=== PATIENT | male | born 1955 | race Caucasian/White ===

== ENCOUNTER → 2019-04-14 | Outpatient (CLI) | payer SELFPAY ==
[2019-04-14 17:54] LABS: Appearance,BF Hazy; Color,BF Yellow
[2019-04-14 17:55] LABS: Nucleated Cells, Body Fluid 1000 /uL; RBC, Body Fluid 1800 /uL
[2019-04-14 17:57] LABS: Mononuclear WBC,Body Fluid 22 %; Polynuclear WBC,Body Fluid 78 %; Total Cells Counted,Body Fluid 100
== END | disposition home or self-care (01) ==
LOC: LABWHC1 15:22
PROVIDERS: ATTEND Orthopaedic Surgery
DX: M25.562 Pain in left knee (principal)
CPT/HCPCS: 87070; 87075; 87205; 89050; 89060

== ENCOUNTER → 2022-07-08 | Outpatient (CLI) | payer MEDICARE ==
--- NOTE | 2022-07-08 12:20 | P.SLEEP ---
History of Present Illness DATE: 07/08/2022 CONSULTATION/NEW PATIENT EVALUATION HISTORY OF PRESENT ILLNESS/SLEEP-WAKE EVALUATION: 67year old lady gentleman had been evaluated in the sleep center for possible obstructive sleep apnea hypopnea syndrome. Patient has history of obstructive sleep apnea diagnosed about 32 years ago. Results of previous sleep studies are not available. Patient is on treatment with CPAP for many years. At the present time he is using old CPAP unit which she received from his relative. SLEEP SCHEDULE: Usually sleep schedule on weekdays from 12 AM until 8 AM, during days off from 1 AM until 9 AM. FALLING ASLEEP: No problems with falling asleep, no TV in bedroom. DURING SLEEP: Patient snores and has episodes of stop breathing during the sleep if he is not using CPAP. Positive history of awakenings with dry mouth, heartburn and gasping for air. No history of hypnogogical hallucinations, sleep paralysis, or cataplexy. DURING THE DAY/WAKE STATE: In the morning patient wake up tired, falling asleep during the day, has problems with memory. [place] sleepiness scale is significantly increased to 16. Patient takes nap at 3 PM. PAST MEDICAL HISTORY: Diabetes mellitus, hyperthyroidism. PAST SURGICAL HISTORY: Surgical treatment of nasal septum deviation. MEDICATIONS: Metformin 1000 mg twice a day, pioglitazone 30 mg once a day, lisinopril 5 mg once a day, methimazole 5 mg once a day. SOCIAL HISTORY: Negative for smoking, alcohol consumption occasional. FAMILY HISTORY: Negative. REVIEW OF SYSTEMS: Snoring, excessive daytime sleepiness. No fevers. No double vision. No recent chest pain. No shortness of breath. No abdominal pain. No bleeding episodes. No blood in urine. No seizure episodes. PHYSICAL EXAMINATION: GENERAL: A pleasant patient without any distress. VITAL SIGNS: BP 120/80 , HR 82 , RR 16 , weight 210 pounds, height 6 foot 2 inches, body mass index 26.9 . HEENT: PERRLA, EOMI. Evaluation of oropharynx showed tongue protrudes midline, low position of soft palate Mallampati 3-4. NECK: Supple. No JVD. Thyroid is not palpable. 15-3/4 inches in circumference. LUNGS: Clear to percussion and to auscultation. Good air exchange. No wheezing or rhonchi. HEART: S1, S2 regular. No murmurs, gallops or rubs. ABDOMEN: Soft and nontender. Bowel sounds are present. No organomegaly appreciated. EXTREMITIES: No clubbing or cyanosis. SHIRT OPERATOR: Awake, alert, and oriented x3. Cranial nerves 2 to 7 intact. There is no fasciculation or atrophy noted. No focal deficits observed. ASSESSMENT: 1. Snoring, low position of soft palate Mallampati 34, significant excessive daytime sleepiness [place] Sleepiness Scale is 16. Obstructive sleep apnea hypopnea syndrome diagnosed in another institution about 32 years ago. Results of previous sleep studies are not available. Obstructive sleep apnea hypopnea syndrome. 2. Hyperthyroidism. 3 diabetes mellitus. 4. Status post surgical treatment for nasal septum deviation. 5 history of sinus problems. PLAN: 1. Polysomnography for evaluation of patient's breathing during sleep. 2. CPAP/BiPAP titration if sleep study confirms obstructive sleep apnea- hypopnea syndrome. 3. Preferable position during sleep on the side. 4. No driving if patient feels any sleepiness. Patient is aware of civil and criminal liability for unsafe driving. 5. Sleep hygiene with regular sleep time for at least 7.5-8 hours. 6. Watching weight. Thank you very much for referring this patient for consultation. Sincerely, Elvin Díaz MD, PhD, FAASM. Diplomat of [place] [employer], Sleep Medicine Board by [employer] Premium Note Interest Calculator Clerk of [facility] [place] [facility] - Sleep Note Sleep Note: Temperature: Pulse Rate: Respiratory Rate: Blood Pressure: SpO2: Height: Weight: BMI: Neck Circumference:
== END ==
LOC: SLEEP 11:21
PROVIDERS: ATTEND Internal Medicine
DX: R06.83 Snoring (principal); E03.9 Hypothyroidism, unspecified; E11.9 Type 2 diabetes mellitus without complications; Z79.84 Long term (current) use of oral hypoglycemic drugs; Z85.22 Personal history of malignant neoplasm of nasal cavities, middle ear, and accessory sinuses
CPT/HCPCS: 99202

== ENCOUNTER → 2022-12-16 | Outpatient (CLI) | payer MEDICARE ==
--- NOTE | 2022-12-16 17:03 | P.PN ---
Subjective DATE: 12/16/2022 FOLLOW UP VISIT. Patient returned to sleep center for follow-up visit to discuss results of sleep study and following plan. I discussed results of sleep studies with patient in details. Patient had CPAP titration night with the following multiple sleep latency test for objective for ablation his symptoms of significant excessive daytime sleepiness while he is on treatment with CPAP. During titration patient respiration was on full control with normal oxygenation during the sleep and patient had normal sleep efficiency of 90%. Multiple sleep latency tests have been done on the following day and consisted from 5 naps. Patient fell asleep on all naps. Mean sleep latency was short only 4.8 minutes. No sleep onset REM periods have been documented. Patient continued to feel sleepiness during the day. [place] sleepiness scale is significantly increased to 15 today.. MEDICATIONS:1. Metformin 1000 mg twice a day 2. Methimasole 5 mg once a day 3. Lisinopril 5 mg once a day 4. Pioglitazone 30 mg once a day During physical exam: GENERAL: A pleasant patient without any distress. VITAL SIGNS: BP 155/86, HR 64, RR 16 , weight 210, temperature 97.3, oxygen saturation at room air 98%. HEENT: PERRLA, EOMI. NECK: Supple. No JVD. LUNGS: Clear to percussion and to auscultation. Good air exchange. No wheezing or rhonchi. HEART: S1, S2 regular. ABDOMEN: Soft and nontender. EXTREMITIES: No clubbing or cyanosis. COUNTER SALES PERSON: Awake, alert, and oriented x3. No focal deficit. Impressions: 1. Obstructive sleep apnea hypopnea syndrome on control with CPAP. 2. Multiple sleep latency test confirmed pathological sleepiness with mean sleep latency 4.8 minutes. 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 3. Diabetes mellitus. 4. Hyperthyroidism. 5. History of sinuses problems. 6. Status post nasal surgery for nasal septum deviation. Plan: 1. Patient will be started on treatment with modafinil 200 mg in the morning 2. Sleep hygiene with regular time in bed for at least 8 hours. 3. Daytime naps permitted 4. Precautions related to driving. No driving if feel any sleepiness. Patient is aware about civil and criminal liability for unsafe driving, promised to follow recommendations. 5. Patient will continue to use CPAP equipment every night for the whole night 6. Follow-up visit in 3 months. Thank you very much for allowing me to participate in the management of your patient. Elvin Díaz MD, PhD, FAASM. Diplomat of [place] [employer], Sleep Medicine Board by [place] [employer] Telephone Service Adviser of [facility] [place]
== END ==
LOC: SLEEP 16:26
PROVIDERS: ATTEND Internal Medicine
DX: G47.33 Obstructive sleep apnea (adult) (pediatric) (principal); E05.90 Thyrotoxicosis, unspecified without thyrotoxic crisis or storm; J32.9 Chronic sinusitis, unspecified; E11.9 Type 2 diabetes mellitus without complications; Z79.84 Long term (current) use of oral hypoglycemic drugs; Z98.890 Other specified postprocedural states
CPT/HCPCS: 99212

== ENCOUNTER → 2023-03-03 | Outpatient (CLI) | payer MEDICARE ==
--- NOTE | 2023-03-03 13:35 | P.PN ---
Subjective DATE: 03/03/2023 FOLLOW UP VISIT. Patient with obstructive sleep apnea hypopnea syndrome return to sleep center for follow-up visit. Information from previous visit have been reviewed. Patient is using PAP equipment every night for the whole night, getting PAP supplies in time. The patient does not have significant problems with the mask, PAP unit and humidification. [place] sleepiness scale is 12, which is slightly above normal range. Multiple sleep latency test in the past showed short sleep latency. Patient is able to control his alertness without additional medications. I checked information from PAP unit. PAP unit pressure 5-13, average 7.2 cm H2O. Usage is 100 % for more then 4 hours, average 7 hours per night. Leak is 13.2 l/m, which is in acceptable range. Apnea Hypopnea Index is 2.4, which is normal. MEDICATIONS:1. Metformin 1000 mg twice a day 2. Pioglitazone 30 mg once a day 3. Methimazole 5 mg once a day 4. Lisinopril 5 mg once a day 5. Jardiance 25 mg once a day During physical exam: GENERAL: A pleasant patient without any distress. VITAL SIGNS: BP 114/71, HR 87, RR 16 , weight 205.4, temperature 98.2, oxygen saturation at room air 97 % . HEENT: PERRLA, EOMI.low position of soft palate, Mallapati 3 . NECK: Supple. No JVD. LUNGS: Clear to percussion and to auscultation. Good air exchange. No wheezing or rhonchi. HEART: S1, S2 regular. ABDOMEN: Soft and nontender.[] EXTREMITIES: No clubbing or cyanosis. COIL CONNECTOR REPAIRER: Awake, alert, and oriented x3. No focal deficit. Impressions: 1. Obstructive sleep apnea-hypopnea syndrome. Patient demonstrated great c ompliance with treatment, benefiting from treatment. 2. Excessive daytime sleepiness, previously confirmed by multiple sleep latency test. Mean sleep latency 4.8 minutes. Patient is able to control his alertness of the present time without additional medications. 3. Hyperthyroidism. 4. Diabetes mellitus. 5. History of sinuses problems. 6. Status post nasal surgery for nasal septum deviation. Plan: 1. Continue using PAP equipment every night for the whole night. 2. I discussed with patient the possibility to use medication for excessive daytime sleepiness, patient prefers not to start medication. 3. PAP unit should stay lower then position of the head. 4. Advised patient to remove all remaining water from humidifier canister daily and make it dry after each usage. Refill canister with fresh distilled water before each usage. 5. Sleep hygiene with regular time in bed for at least 8 hours. 6. Precautions related to driving. No driving if feel any sleepiness. 7. I will maintain prescription for PAP supplies including mask, tube, filters. 8. Watching weight. 9. Follow up visit in 6 months or earlier if patient has any problems. Thank you very much for allowing me to participate in the management of your patient. Elvin Díaz MD, PhD, FAASM. Diplomat of [place] [employer], Sleep Medicine Board by [place] [employer] Laser Specialist of [facility] [place]
== END ==
LOC: 3 N SLEEP 13:00
PROVIDERS: ATTEND Internal Medicine
DX: G47.33 Obstructive sleep apnea (adult) (pediatric) (principal); E03.9 Hypothyroidism, unspecified; E11.9 Type 2 diabetes mellitus without complications; J34.2 Deviated nasal septum; Z99.89 Dependence on other enabling machines and devices; Z79.84 Long term (current) use of oral hypoglycemic drugs
CPT/HCPCS: 99212

== ENCOUNTER → 2023-09-01 | Outpatient (CLI) | payer MEDICARE ==
--- NOTE | 2023-09-01 13:48 | P.PN ---
Subjective DATE: 09/01/2023 FOLLOW UP VISIT. Patient with obstructive sleep apnea hypopnea syndrome return to sleep center for follow-up visit. Information from previous visit have been reviewed. Patient is using PAP equipment every night for the whole night, getting PAP supplies in time. The patient does not have significant problems with the mask, PAP unit and humidification. [place] sleepiness scale is increased to 13. I checked information from PAP unit. PAP unit pressure 5-13, average 7.1 cm H2O. Usage is 100 % for more then 4 hours, average 7 hours per night. Leak is 15.5 l/m, which is in acceptable range. Apnea Hypopnea Index is 2.0, which is normal. MEDICATIONS:1. Metformin 1000 mg twice a day 2. Pioglitazone 30 mg once a day 3. Lisinopril 5 mg once a day 4. Jardiance 25 mg once a day 5. Methimasole 5 mg once a day During physical exam: GENERAL: A pleasant patient without any distress. VITAL SIGNS: BP 123/75, HR 76, RR 16 , weight 214, temperature 28.2, oxygen saturation at room air 98.0 % . HEENT: PERRLA, EOMI.low position of soft palate, Mallapati 3 . NECK: Supple. No JVD. LUNGS: Clear to percussion and to auscultation. Good air exchange. No wheezing or rhonchi. HEART: S1, S2 regular. ABDOMEN: Soft and nontender.[] EXTREMITIES: No clubbing or cyanosis. BROADCAST SYSTEMS ENGINEER: Awake, alert, and oriented x3. No focal deficit. Impressions: 1. Obstructive sleep apnea-hypopnea syndrome. Patient demonstrated great compliance with treatment, benefiting from treatment. 2. Excessive daytime sleepiness, previously confermed with multiple sleep latency test, mean sleep latency 4.8 minutes. Patient is able to control his alertness during the day without any additional medications. 3. Diabetes mellitus. 4. Hyperthyroidism. 5. History of sinuses problems. 6. Status post nasal surgery for nasal septum deviation. Plan: 1. Continue using PAP equipment every night for the whole night. 2. To change air filter at least 1-2 times per month. 3. PAP unit should stay lower then position of the head. 4. Advised patient to remove all remaining water from humidifier canister daily and make it dry after each usage. Refill canister with fresh distilled water before each usage. 5. Sleep hygiene with regular time in bed for at least 8 hours. 6. Precautions related to driving. No driving if feel any sleepiness. 7. I will maintain prescription for PAP supplies including mask, tube, filters. 8. Follow up visit in 6 months or earlier if patient has any problems. 9. Watching weight. Thank you very much for allowing me to participate in the management of your patient. Elvin Díaz MD, PhD, FAASM. Diplomat of [place] [employer], Sleep Medicine Board by [place] [employer] Reel Assembler of [facility] [place]
== END ==
LOC: 3 N SLEEP 13:12
PROVIDERS: ATTEND Internal Medicine
DX: G47.33 Obstructive sleep apnea (adult) (pediatric) (principal); E11.9 Type 2 diabetes mellitus without complications; G47.10 Hypersomnia, unspecified; J32.9 Chronic sinusitis, unspecified; E05.90 Thyrotoxicosis, unspecified without thyrotoxic crisis or storm; Z98.890 Other specified postprocedural states; Z99.89 Dependence on other enabling machines and devices; Z79.84 Long term (current) use of oral hypoglycemic drugs
CPT/HCPCS: 99212

== ENCOUNTER → 2024-04-19 | Outpatient (CLI) | payer MEDICARE | LOC: 3 N SLEEP 13:20 | PROVIDERS: ATTEND Internal Medicine | CPT/HCPCS: 99212 ==